=== PATIENT | male | born 1935 | race Caucasian/White ===

== ENCOUNTER 2020-09-11 20:29 | Emergency (ER) | payer OTHER ==
[~2020-09-11 20:29] MED LIST: ALLOPURINOL300 MG PO; ASPIR 8181 MG PO; ASPIRIN325 MG PO; BYSTOLIC10 MG PO; BYSTOLIC5 MG PO; IRON18 MG PO; LISINOPRIL40 MG PO; METFORMIN HCL500 MG PO; NORVASC5 MG PO; SULINDAC200 MG PO; TEKTURNA150 MG PO; VITAMIN D1000 UNIT PO; ZESTRIL40 MG PO; ZOCOR40 M1 PO
== END 2020-09-11 21:44 | disposition home or self-care (01) ==
LOC: FER 20:29
DX: H61.22 Impacted cerumen, left ear (principal); I10 Essential (primary) hypertension; Z79.899 Other long term (current) drug therapy
CPT/HCPCS: 99283

== ENCOUNTER 2021-07-26 20:09 | Emergency (ER) | payer OTHER ==
[2021-07-26 20:43] LABS: BASOPHIL 0.2 % (0-2); EOSINOPHIL 0 % (0-7); HCT 46.3 % (42.0-52.0); HGB 15.6 g/dl (13.2-18.0); LYMPHOCYTE 7.4 % (15-48); MCHC 33.7 g/dL (32.0-36.0); MCV 94.9 fL (78.0-100.0); MONOCYTE 5.3 % (0-12); MPV 9.7 fL (6.0-9.5); NEUTROPHIL 86.8 % (41-80); NRBC 0; PLT 240 K/uL (150-400); RBC 4.88 M/uL (4.70-6.00); RDW 13.8 % (11.5-14.0); WBC 11.5 K/uL (4.0-10.5)
[2021-07-26 20:54] LABS: ALBUMIN 3.7 g/dL (3.4-5.0); BUN/CREAT RATIO (CALC) 25.3 RATIO; CREATININE 1.78 mg/dL (0.67-1.17); GLOBULIN (CALCULATION) 3.4 g/dL; POTASSIUM 4.8 mmol/L (3.5-5.1); TOTAL PROTEIN 7.1 g/dL (6.4-8.2)
[2021-07-26 21:51] LABS: BILIRUBIN 1+ mg/dL (NEGATIVE); BLOOD NEGATIVE Ery/uL (NEGATIVE); CLARITY CLEAR (CLEAR); COLOR YELLOW (YELLOW); GLUCOSE (U) NORMAL (NORMAL); LEUKOCYTES NEGATIVE Leu/uL (NEGATIVE); NITRITE NEGATIVE (NEGATIVE); PROTEIN NEGATIVE (NEGATIVE); SPECIFIC GRAVITY >=1.030 (1.001-1.030); UROBILINOGEN 0.2 mg/dL (0.2-1.0); pH 5.5 (5.0-9.0)
== END 2021-07-26 23:45 | disposition home or self-care (01) ==
LOC: FER 20:09
PROVIDERS: Internal Medicine
DX: R55 Syncope and collapse (principal); I95.9 Hypotension, unspecified; I10 Essential (primary) hypertension; Z88.1 Allergy status to other antibiotic agents; Z88.6 Allergy status to analgesic agent
CPT/HCPCS: 36415; 70450; 71250; 80053; 81003; 84484; 85025; 93005; J7030

== ENCOUNTER 2021-08-20 11:16 | Inpatient (IN) | payer OTHER ==
[~2021-08-20] VITALS: Ht 177.8 cm; Wt 66.0 kg
[2021-08-20 13:17] LABS: BILIRUBIN NEGATIVE (NEGATIVE); BLOOD 3+ Ery/uL (NEGATIVE); COLOR YELLOW (YELLOW); GLUCOSE (U) NORMAL (NORMAL); LEUKOCYTES 3+ Leu/uL (NEGATIVE); NITRITE NEGATIVE (NEGATIVE); PROTEIN TRACE (LOW) mg/dL (NEGATIVE); UROBILINOGEN 0.2 mg/dL (0.2-1.0); pH 6.5 (5.0-9.0)
[2021-08-20 13:17] LABS: BASOPHIL 0.4 % (0-2); EOSINOPHIL 0.7 % (0-7); HCT 44.2 % (42.0-52.0); HGB 15.1 g/dl (13.2-18.0); LYMPHOCYTE 9.1 % (15-48); MCH 31.7 pg (25.0-31.0); MCHC 34.2 g/dL (32.0-36.0); MCV 92.7 fL (78.0-100.0); MONOCYTE 6.4 % (0-12); MPV 10.9 fL (6.0-9.5); NRBC 0; PLT 169 K/uL (150-400); RBC 4.77 M/uL (4.70-6.00); RDW 13.9 % (11.5-14.0); WBC 10.4 K/uL (4.0-10.5)
[2021-08-20 13:20] LABS: CLARITY HAZY (CLEAR)
[2021-08-20 13:23] LABS: SPERM PRESENT
[2021-08-20 13:24] LABS: BACTERIA 1+; MUCOUS TRACE
[2021-08-20 13:30] LABS: BILIRUBIN - TOTAL 0.9 mg/dL (0.2-1.0); BUN/CREAT RATIO (CALC) 24.1 RATIO; CREATININE 0.83 mg/dL (0.67-1.17); GLOBULIN (CALCULATION) 3.2 g/dL; POTASSIUM 4.3 mmol/L (3.5-5.1); TOTAL PROTEIN 6.2 g/dL (6.4-8.2)
[2021-08-20] MEDS ORDERED: CYMBALTA 30MG C30 MG PO (18:17)
[2021-08-20] MEDS ORDERED: NORVASC5 MG PO (18:18)
[2021-08-20] MEDS ORDERED: LIPITOR 10MG TA10 MG PO (18:18)
[2021-08-20] MEDS ORDERED: PRINIVIL20 MG PO (18:18)
[2021-08-22 07:29] LABS: BASOPHIL 0.2 % (0-2); EOSINOPHIL 0.2 % (0-7); HCT 42.3 % (42.0-52.0); LYMPHOCYTE 7.8 % (15-48); MCH 31.2 pg (25.0-31.0); MCHC 33.1 g/dL (32.0-36.0); MCV 94.2 fL (78.0-100.0); MONOCYTE 5.9 % (0-12); MPV 10.8 fL (6.0-9.5); NEUTROPHIL 85.5 % (41-80); NRBC 0; PLT 157 K/uL (150-400); RBC 4.49 M/uL (4.70-6.00); RDW 14.6 % (11.5-14.0); WBC 11.8 K/uL (4.0-10.5)
--- NOTE | 2021-08-22 14:12 | NUR ---
08/22/21 Mr. Franks was oreinted to name, and address when an assessment was attempted on 08/21. He was note oriented to place, time, or situation. Mr. Franks's condition has deteriorated and he has been moved to TCU. ETOH withdrawal is suspected. - In attempts to locate next of kin, Jeni Garcia, cotton inspector / respiratory therapy assistant, , was contacted. She reports perform grocery shopping, keep house, meals preparation at times and to have stayed over night last weekend due to decline in condition. Ms. Garcia reports several recent falls. Mr. Franks has a rw and s. seat. A recent referral was made to [facility] by Dr. Duque, PCP. Ms. Garcia provided the information re: a first counsin, Jory Real, . - Ms. Real reports that Mr. Franks has 2 daughters in [place] whom Mr. Franks has not had contact in msy years. He has a sister, Freda Barksdale in [place], [place]. The telephone # was disconnected the last time Mr. Franks attempted to reach his sister. - Ms. Real was agreeable to be contacted if consent is needed in case of an emergency. - [facility] was notified of admission. - Report given to Dr. Stovall.
[2021-08-23 06:51] LABS: BASOPHIL 0.2 % (0-2); EOSINOPHIL 0.7 % (0-7); HCT 40.7 % (42.0-52.0); HGB 13.5 g/dl (13.2-18.0); LYMPHOCYTE 11.1 % (15-48); MCH 31.3 pg (25.0-31.0); MCHC 33.2 g/dL (32.0-36.0); MCV 94.2 fL (78.0-100.0); MONOCYTE 6.7 % (0-12); MPV 10.9 fL (6.0-9.5); NEUTROPHIL 80.9 % (41-80); NRBC 0; PLT 155 K/uL (150-400); RBC 4.32 M/uL (4.70-6.00); RDW 14.6 % (11.5-14.0); WBC 9.6 K/uL (4.0-10.5)
[2021-08-23 07:07] LABS: ALBUMIN 2.4 g/dL (3.4-5.0); BILIRUBIN - DIRECT 0.2 mg/dL (0.00-0.20); BUN/CREAT RATIO (CALC) 18.9 RATIO; CREATININE 0.9 mg/dL (0.67-1.17); GLOBULIN (CALCULATION) 3.3 g/dL; POTASSIUM 3.7 mmol/L (3.5-5.1); TOTAL PROTEIN 5.7 g/dL (6.4-8.2)
[2021-08-24 06:19] LABS: BASOPHIL 0.3 % (0-2); EOSINOPHIL 1.7 % (0-7); HCT 40.2 % (42.0-52.0); HGB 13.5 g/dl (13.2-18.0); LYMPHOCYTE 13.1 % (15-48); MCH 31.9 pg (25.0-31.0); MCHC 33.6 g/dL (32.0-36.0); MONOCYTE 9.8 % (0-12); MPV 10.7 fL (6.0-9.5); NEUTROPHIL 74.5 % (41-80); NRBC 0; PLT 158 K/uL (150-400); RBC 4.23 M/uL (4.70-6.00); RDW 14.7 % (11.5-14.0); WBC 6.4 K/uL (4.0-10.5)
[2021-08-24 06:39] LABS: BUN/CREAT RATIO (CALC) 24.3 RATIO; CREATININE 0.74 mg/dL (0.67-1.17); POTASSIUM 4.1 mmol/L (3.5-5.1)
[2021-08-25 06:31] LABS: BASOPHIL 0.5 % (0-2); EOSINOPHIL 2.1 % (0-7); HCT 40.2 % (42.0-52.0); HGB 13.6 g/dl (13.2-18.0); LYMPHOCYTE 13.3 % (15-48); MCH 31.9 pg (25.0-31.0); MCHC 33.8 g/dL (32.0-36.0); MCV 94.4 fL (78.0-100.0); MONOCYTE 10.3 % (0-12); MPV 10.6 fL (6.0-9.5); NEUTROPHIL 72.8 % (41-80); NRBC 0; PLT 161 K/uL (150-400); RBC 4.26 M/uL (4.70-6.00); RDW 14.5 % (11.5-14.0); WBC 6.3 K/uL (4.0-10.5)
--- NOTE | 2021-08-25 06:36 | NUR ---
ORTHOSTATIC VITALS ORDERED ON PATIENT. UNABLE TO OBTAIN DUE TO PATIENT INABILITY TO STAND.
[2021-08-25 07:06] LABS: BUN/CREAT RATIO (CALC) 19.7 RATIO; CREATININE 0.66 mg/dL (0.67-1.17); POTASSIUM 4.3 mmol/L (3.5-5.1)
[2021-08-25] MEDS ORDERED: LUMIGAN5 ML EYEBOTH (09:37)
[2021-08-25] MEDS ORDERED: TIMOPTIC5 ML EYERT (09:39)
[2021-08-26 06:25] LABS: BASOPHIL 0.6 % (0-2); EOSINOPHIL 1.4 % (0-7); HCT 42.2 % (42.0-52.0); HGB 13.6 g/dl (13.2-18.0); LYMPHOCYTE 10.4 % (15-48); MCH 31.3 pg (25.0-31.0); MCHC 32.2 g/dL (32.0-36.0); MONOCYTE 9.7 % (0-12); MPV 10.4 fL (6.0-9.5); NEUTROPHIL 77.1 % (41-80); NRBC 0; PLT 190 K/uL (150-400); RBC 4.35 M/uL (4.70-6.00); RDW 14.6 % (11.5-14.0); WBC 9.1 K/uL (4.0-10.5)
[2021-08-26 06:56] LABS: BUN/CREAT RATIO (CALC) 20.8 RATIO; CREATININE 0.72 mg/dL (0.67-1.17)
[2021-08-27 06:26] LABS: BASOPHIL 0.6 % (0-2); EOSINOPHIL 1.6 % (0-7); HCT 39.9 % (42.0-52.0); HGB 13.3 g/dl (13.2-18.0); LYMPHOCYTE 11.1 % (15-48); MCH 31.7 pg (25.0-31.0); MCHC 33.3 g/dL (32.0-36.0); MONOCYTE 8.8 % (0-12); MPV 10.6 fL (6.0-9.5); NEUTROPHIL 76.9 % (41-80); NRBC 0; PLT 214 K/uL (150-400); RDW 14.5 % (11.5-14.0); WBC 8.9 K/uL (4.0-10.5)
[2021-08-27 06:50] LABS: BUN/CREAT RATIO (CALC) 21.9 RATIO; CREATININE 0.64 mg/dL (0.67-1.17); POTASSIUM 4.2 mmol/L (3.5-5.1)
[2021-08-28 06:56] LABS: BUN/CREAT RATIO (CALC) 23.8 RATIO; CREATININE 0.63 mg/dL (0.67-1.17); POTASSIUM 4.9 mmol/L (3.5-5.1)
[2021-08-28] MEDS ORDERED: FLORANEX TABLE1 EACH PO (10:12)
[2021-08-28] MEDS ORDERED: CLOTRIMAZOLE45 G1 TOP (10:12)
[2021-08-28] MEDS ORDERED: VITAMIN B-1100 M1 PO (10:12)
[2021-08-28] MEDS ORDERED: MAG-OXIDE 400M400 MG PO (10:12)
[2021-08-28] MEDS ORDERED: FOLIC ACID1 MG PO (10:12)
--- NOTE | 2021-08-28 12:33 | NUR ---
08/28 Mr. Franks has agreed to SNF placement. Referrals have been [facility]ed to [facility]. [facility] does not have an available bed this week.
--- NOTE | 2021-08-29 09:48 | NUR ---
08/29/21 [facility] has accepted patient pending insurance authorization. - A message has been left for Jenidione Garcia to onquire if she can provide transportation. - Recommendations were made for Mr. Franks to see his harness builder re: devising a DPOA.
--- NOTE | 2021-08-29 14:31 | NUR ---
08/29/21 [facility] has received insurance auth for admission today. Please call report to: [phone] and fax DS and signed H&P to: . Pt meets criteria for EMS per nursing. - Jeni Garcia, director of engineering, was informed of discharge plan per Mr. Franks's request.
== END 2021-08-29 22:07 | DRG 689 ==
LOC: FER 11:16 → FMS 14:22 → FTCU 14:22 → FMS 14:22 → FTCU 08-22 10:41 → FMS 08-24 22:57
PROVIDERS: Emergency Medicine; Family Medicine; ADMIT Allergy & Immunology Allergy
PROC: HZ2ZZZZ Detoxification Services for Substance Abuse Treatment (ICD-10-PCS; principal; 2021-08-22)
DX: N30.01 Acute cystitis with hematuria (principal); G93.41 Metabolic encephalopathy; R44.0 Auditory hallucinations; Z16.12 Extended spectrum beta lactamase (ESBL) resistance; T84.84XA Pain due to internal orthopedic prosthetic devices, implants and grafts, initial encounter; F10.239 Alcohol dependence with withdrawal, unspecified; F10.221 Alcohol dependence with intoxication delirium; Z20.822 Contact with and (suspected) exposure to COVID-19; N48.1 Balanitis; M25.571 Pain in right ankle and joints of right foot; M25.572 Pain in left ankle and joints of left foot; W19.XXXA Unspecified fall, initial encounter; I95.1 Orthostatic hypotension; F41.9 Anxiety disorder, unspecified; R44.1 Visual hallucinations; B96.4 Proteus (mirabilis) (morganii) as the cause of diseases classified elsewhere; B95.2 Enterococcus as the cause of diseases classified elsewhere; E11.9 Type 2 diabetes mellitus without complications; I10 Essential (primary) hypertension; Z96.651 Presence of right artificial knee joint; I25.10 Atherosclerotic heart disease of native coronary artery without angina pectoris; E78.5 Hyperlipidemia, unspecified; Z87.81 Personal history of (healed) traumatic fracture; Z88.1 Allergy status to other antibiotic agents; Z98.890 Other specified postprocedural states; Z82.49 Family history of ischemic heart disease and other diseases of the circulatory system; Z79.899 Other long term (current) drug therapy
CPT/HCPCS: 36415; 70450; 71045; 72131; 73502; 73600; 73610; 80048; 80053; 80076; 80202; 81001; 83036; 85025; 87040; 87076; 87088; 87186; 93005; 97162; 97166; 97530; 97530-GP; 97535; J0696; J1650; J2185; J2543; J7120; U0002

== ENCOUNTER 2021-09-27 15:14 | Emergency (ER) | payer OTHER ==
[~2021-09-27 15:14] MED LIST changes: +CLOTRIMAZOLE45 G1 TOP; +CYMBALTA 30MG C30 MG PO; +FLORANEX TABLE1 EACH PO; +FOLIC ACID1 MG PO; +LIPITOR 10MG TA10 MG PO; +LUMIGAN5 ML EYEBOTH; +MAG-OXIDE 400M400 MG PO; +PRINIVIL20 MG PO; +TIMOPTIC5 ML EYERT; +VITAMIN B-1100 M1 PO
== END 2021-09-27 19:00 | disposition home or self-care (01) ==
LOC: FER 15:14
DX: I95.89 Other hypotension (principal); Z88.1 Allergy status to other antibiotic agents; Z88.6 Allergy status to analgesic agent
CPT/HCPCS: 99284

== ENCOUNTER 2021-10-30 13:14 | Emergency (ER) | payer OTHER ==
[2021-10-30 13:55] LABS: BASOPHIL 0.4 % (0-2); EOSINOPHIL 1.7 % (0-7); HCT 39.8 % (42.0-52.0); HGB 13.1 g/dl (13.2-18.0); LYMPHOCYTE 12.3 % (15-48); MCH 31.3 pg (25.0-31.0); MCHC 32.9 g/dL (32.0-36.0); MONOCYTE 7.2 % (0-12); MPV 10.1 fL (6.0-9.5); NEUTROPHIL 78.2 % (41-80); NRBC 0; PLT 232 K/uL (150-400); RBC 4.19 M/uL (4.70-6.00); RDW 14.5 % (11.5-14.0); WBC 8.1 K/uL (4.0-10.5)
[2021-10-30 14:24] LABS: LACTIC ACID 1.2 mmol/L (0.4-1.9)
[2021-10-30 14:30] LABS: INR 0.97 (0.9-1.2); PROTHROMBIN TIME 12.6 SECONDS (11.9-13.9); PTT 32.6 SECONDS (24.9-34.6)
[2021-10-30 14:54] LABS: ALBUMIN 2.7 g/dL (3.4-5.0); ALKALINE PHOSHATASE 96 U/L (46-116); ALT 28 U/L (16-63); AST 42 U/L (15-37); BILIRUBIN - TOTAL 0.8 mg/dL (0.2-1.0); BUN 19 mg/dL (7-18); BUN/CREAT RATIO (CALC) 31.1 RATIO; CHLORIDE 104 mmol/L (98-107); CO2 (BICARBONATE) 27 mmol/L (21-32); CREATININE 0.61 mg/dL (0.67-1.17); GLOBULIN (CALCULATION) 3.1 g/dL; GLUCOSE 79 mg/dL (74-106); LIPASE 90 U/L (73-393); MAGNESIUM 1.8 mg/dL (1.8-2.4); POTASSIUM 3.8 mmol/L (3.5-5.1); TOTAL PROTEIN 5.8 g/dL (6.4-8.2)
[2021-10-30 15:04] LABS: IRON % SATURATION 25.1 %SAT (20-50)
[2021-10-30 15:09] LABS: CORONAVIRUS 2019 SARS-COV-2 NEGATIVE (NEGATIVE); INFLUENZA A NAA NEGATIVE (NEGATIVE)
[2021-10-30 17:10] LABS: CLARITY HAZY (CLEAR); COLOR YELLOW (YELLOW); SPECIFIC GRAVITY > 1.030 (1.001-1.030)
[2021-10-30 17:11] LABS: BILIRUBIN NEGATIVE (NEGATIVE); BLOOD NEGATIVE Ery/uL (NEGATIVE); GLUCOSE (U) NORMAL (NORMAL); LEUKOCYTES NEGATIVE Leu/uL (NEGATIVE); NITRITE NEGATIVE (NEGATIVE); PROTEIN NEGATIVE (NEGATIVE); UROBILINOGEN 0.2 mg/dL (0.2-1.0)
== END 2021-10-30 18:50 | disposition home or self-care (01) ==
LOC: FER 13:14
PROVIDERS: Emergency Medicine
DX: I95.89 Other hypotension (principal); F03.90 Unspecified dementia, unspecified severity, without behavioral disturbance, psychotic disturbance, mood disturbance, and anxiety; E11.9 Type 2 diabetes mellitus without complications; Z20.822 Contact with and (suspected) exposure to COVID-19; Z87.891 Personal history of nicotine dependence
CPT/HCPCS: 36415; 71045; 80053; 81003; 82140; 83540; 83550; 83605; 83690; 83735; 83880; 84145; 84439; 84443; 84484; 85025; 85610; 85730; 86140; 87040; 93005; G0480; U0002

== ENCOUNTER 2021-10-31 10:36 | Inpatient (IN) | payer OTHER ==
[~2021-10-31] VITALS: Ht 175.3 cm; Wt 68.1 kg
[2021-10-31 11:40] LABS: PTT 31.7 SECONDS (24.9-34.6)
[2021-10-31 11:41] LABS: INR 0.97 (0.9-1.2); PROTHROMBIN TIME 12.6 SECONDS (11.9-13.9)
[2021-10-31 11:47] LABS: LACTIC ACID 0.7 mmol/L (0.4-1.9)
[2021-10-31 11:56] LABS: ALBUMIN 2.7 g/dL (3.4-5.0); BILIRUBIN - TOTAL 0.7 mg/dL (0.2-1.0); BUN/CREAT RATIO (CALC) 31.1 RATIO; CREATININE 0.61 mg/dL (0.67-1.17); FT4 (FREE T4) 1.2 ng/dL (0.76-1.46); GLOBULIN (CALCULATION) 3.2 g/dL; MAGNESIUM 1.7 mg/dL (1.8-2.4); POTASSIUM 4.3 mmol/L (3.5-5.1); TOTAL PROTEIN 5.9 g/dL (6.4-8.2)
[2021-10-31 12:12] LABS: BASOPHIL 0.3 % (0-2); EOSINOPHIL 0.8 % (0-7); HCT 38.7 % (42.0-52.0); HGB 12.9 g/dl (13.2-18.0); LYMPHOCYTE 9.1 % (15-48); MCH 31.7 pg (25.0-31.0); MCHC 33.3 g/dL (32.0-36.0); MCV 95.1 fL (78.0-100.0); MONOCYTE 4.3 % (0-12); MPV 9.8 fL (6.0-9.5); NEUTROPHIL 84.1 % (41-80); NRBC 0; PLT 171 K/uL (150-400); RBC 4.07 M/uL (4.70-6.00); RDW 14.2 % (11.5-14.0); WBC 9.9 K/uL (4.0-10.5)
[2021-10-31 12:24] LABS: BILIRUBIN NEGATIVE (NEGATIVE); BLOOD 3+ Ery/uL (NEGATIVE); CLARITY CLEAR (CLEAR); COLOR YELLOW (YELLOW); GLUCOSE (U) NORMAL (NORMAL); LEUKOCYTES NEGATIVE Leu/uL (NEGATIVE); NITRITE NEGATIVE (NEGATIVE); PROTEIN NEGATIVE (NEGATIVE); SPECIFIC GRAVITY >=1.030 (1.001-1.030)
[2021-10-31 13:02] LABS: CORONAVIRUS 2019 SARS-COV-2 NEGATIVE (NEGATIVE); INFLUENZA A NAA NEGATIVE (NEGATIVE)
[2021-10-31 13:17] LABS: BACTERIA 1+; SQUAMOUS EPITHELIAL CELLS RARE; URINARY RBC 20-50; URINARY WBC RARE
[2021-10-31 13:18] LABS: CALCIUM OXALATE CRYSTALS MODERATE
[2021-11-01 05:42] LABS: HCT 36.6 % (42.0-52.0); HGB 12.3 g/dl (13.2-18.0); MCH 31.6 pg (25.0-31.0); MCHC 33.6 g/dL (32.0-36.0); MCV 94.1 fL (78.0-100.0); MPV 9.9 fL (6.0-9.5); RBC 3.89 M/uL (4.70-6.00); RDW 14.5 % (11.5-14.0)
[2021-11-01 06:02] LABS: CREATININE 0.62 mg/dL (0.67-1.17); POTASSIUM 3.6 mmol/L (3.5-5.1)
--- NOTE | 2021-11-01 16:16 | NUR ---
11/01/21 Mr. Franks lives alone. He has a dip unit operator, Jeni Garcia, . Mr. Franks has a rw and s. seat. He has been having falls at home. [facility] has discharge him from their services stating patient is not safe in the home. APS, Myla Skinner is has an open case, . Ms. Skinner plans to request guardianship. - Mr. Franks has agreed to SNF placement. - [facility] choice is [facility] 2nd [facility]. [facility] does not accept his insurance. All [facility] facilities have denied because Mr. Franks would not apply for Medicaid when he was last in their facility in [facility] and he owes the facility money. [facility] does not have a bed available. [facility], and [facility] and [facility] are reviewing.
--- NOTE | 2021-11-02 12:45 | NUR ---
11/02/21 [facility] denied and will not consider accepting until a guardian is secured. [facility] denied becuase they are not in network. [facility] and [facility] is reviewing the referral.
[2021-11-04 12:04] LABS: HCT 37.9 % (42.0-52.0); HGB 12.6 g/dl (13.2-18.0); MCH 31.8 pg (25.0-31.0); MCHC 33.2 g/dL (32.0-36.0); MCV 95.7 fL (78.0-100.0); MPV 10.2 fL (6.0-9.5); RBC 3.96 M/uL (4.70-6.00); RDW 14.9 % (11.5-14.0); WBC 10.5 K/uL (4.0-10.5)
[2021-11-04 12:25] LABS: ALBUMIN 2.3 g/dL (3.4-5.0); BILIRUBIN - TOTAL 0.7 mg/dL (0.2-1.0); BUN/CREAT RATIO (CALC) 20.8 RATIO; CREATININE 0.53 mg/dL (0.67-1.17); GLOBULIN (CALCULATION) 3.3 g/dL; POTASSIUM 3.9 mmol/L (3.5-5.1); TOTAL PROTEIN 5.6 g/dL (6.4-8.2)
[2021-11-05 06:19] LABS: HCT 35.7 % (42.0-52.0); HGB 11.9 g/dl (13.2-18.0); MCH 31.8 pg (25.0-31.0); MCHC 33.3 g/dL (32.0-36.0); MCV 95.5 fL (78.0-100.0); MPV 10.5 fL (6.0-9.5); RBC 3.74 M/uL (4.70-6.00); RDW 14.8 % (11.5-14.0); WBC 7.3 K/uL (4.0-10.5)
[2021-11-05 06:38] LABS: ALBUMIN 2.2 g/dL (3.4-5.0); BILIRUBIN - TOTAL 0.6 mg/dL (0.2-1.0); BUN/CREAT RATIO (CALC) 16.7 RATIO; CREATININE 0.66 mg/dL (0.67-1.17); GLOBULIN (CALCULATION) 3.4 g/dL; POTASSIUM 3.8 mmol/L (3.5-5.1); TOTAL PROTEIN 5.6 g/dL (6.4-8.2)
--- NOTE | 2021-11-05 10:11 | NUR ---
11/05/21 Mr. Franks started exhibiting withdrawal symptoms, hallucinations, on 11/04/21. He is not ready for discharge.
--- NOTE | 2021-11-05 22:37 | NUR ---
HS BLOOD GLUCOSE - 87
[2021-11-06 05:31] LABS: BASOPHIL 0.3 % (0-2); EOSINOPHIL 1.3 % (0-7); HCT 33.6 % (42.0-52.0); LYMPHOCYTE 7.7 % (15-48); MCH 31.7 pg (25.0-31.0); MCHC 32.7 g/dL (32.0-36.0); MCV 96.8 fL (78.0-100.0); NEUTROPHIL 81.3 % (41-80); NRBC 0; PLT 167 K/uL (150-400); RBC 3.47 M/uL (4.70-6.00)
[2021-11-06 05:56] LABS: ALBUMIN 2.1 g/dL (3.4-5.0); BILIRUBIN - TOTAL 0.6 mg/dL (0.2-1.0); BUN/CREAT RATIO (CALC) 18.2 RATIO; CREATININE 0.66 mg/dL (0.67-1.17); GLOBULIN (CALCULATION) 2.8 g/dL; MAGNESIUM 1.7 mg/dL (1.8-2.4); PHOSPHORUS 2.9 mg/dL (2.6-4.7); POTASSIUM 3.5 mmol/L (3.5-5.1); TOTAL PROTEIN 4.9 g/dL (6.4-8.2)
[2021-11-06 11:07] LABS: IRON % SATURATION 12.7 %SAT (20-50)
--- NOTE | 2021-11-06 15:14 | NUR ---
11/06/21 Mr. Franks continues to withdrawal from etoh. New therapy assessments will likely be required in order to persue SNF placement if patient continues to be in agreement with the plan.
[2021-11-07 06:04] LABS: BASOPHIL 0.3 % (0-2); EOSINOPHIL 0.3 % (0-7); HGB 10.3 g/dl (13.2-18.0); LYMPHOCYTE 3.7 % (15-48); MCH 31.5 pg (25.0-31.0); MCHC 32.2 g/dL (32.0-36.0); MCV 97.9 fL (78.0-100.0); MONOCYTE 3.9 % (0-12); MPV 10.4 fL (6.0-9.5); NRBC 0; PLT 151 K/uL (150-400); RBC 3.27 M/uL (4.70-6.00); RDW 14.6 % (11.5-14.0)
[2021-11-07 06:07] LABS: NEUTROPHIL 91.1 % (41-80)
--- NOTE | 2021-11-07 06:07 | NUR ---
PATIENTS LUNGS SOUNDED WET WITH CRACKLES AFTER THE BOLUS GIVEN FOR HIS BLOOD PRESSURE. RT WAS CALLED AND ORDERED WAS PLACED FOR NT SUCTION. WHITISH CHUNKY SUBSTANCE WAS IN THE SUCTION TUBING. APPEARS THE PT. MAY HAVE ASPIRATED ACCORDING TO RT. FITNESS CONSULTANT NOTIFIED. LASIX 20MG IV ALSO ORDERED AT THIS TIME. ER,RN
[2021-11-07 06:45] LABS: ALBUMIN 1.7 g/dL (3.4-5.0); BILIRUBIN - TOTAL 0.6 mg/dL (0.2-1.0); BUN/CREAT RATIO (CALC) 26.1 RATIO; C-REACTIVE PROTEIN 11.2 mg/dL (<=0.90); CREATININE 0.46 mg/dL (0.67-1.17); GLOBULIN (CALCULATION) 2.1 g/dL; MAGNESIUM 2.1 mg/dL (1.8-2.4); TOTAL PROTEIN 3.8 g/dL (6.4-8.2)
--- NOTE | 2021-11-07 12:23 | NUR ---
12/08/21 Mr. Franks's condition is worsening.
--- NOTE | 2021-11-07 16:33 | NUR ---
MONITORED PATIENT MENTAL STATUS THROUGHOUT THE DAY AND PATIENT WAS ONLY ALERT TO NAME AND REQUIRED STERNAL RUB TO WAKE UP. WOULD ONLY OPEN EYES FOR A COUPLE OF SECONDS AND WOULD FALL BACK ASLEEP. WOULD NOT FOLLOW COMMANDS. 1100 NOTIFIED REGARDING PRESSURES AND MAP AT 62. 1LNS BOLUS WAS GIVEN. PRESSURES IMPROVED WITH MAP OF 65. ZOSYN WAS STARTED WELL. APPROX 1315 NOTIFIED REGARDING PATIENT DECLINE. BREATHING WAS MORE APENIC, SHALLOW, O2 SAT WAS DECREASING WITH VENTURI 50% SAT AT 90%. BLOOD PRESSURE DROPPED TO 59. MANUAL WAS TAKEN TO CONFIRM. SKIN COLOR WAS PALE AND PATIENT WAS LESS RESPONSIVE EVEN TO STERNAL RUB. CONDITION WAS WORSENING . CAME TO ASSESS AND MORE IV WERE PLACED. PATIENT WAS MOVED TO ICU2. BP MAP WAS 55 AND LEVOPHED WAS STARTED WELL. ORDERED MRI HEAD AND CHEST TO CHECK FOR BLOOD CLOT. CLOTS WERE RULED OUT. ROMAZICON WAS GIVEN AND PATIENT RESPONDED WITHIN 10 SECONDS. BECAME MORE ORIENTED, ALERT AND WOULD FOLLOW COMMANDS. ORDERS WERE PLACED TO BE GIVE Q20HR PRN. 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
[2021-11-08 05:36] LABS: BASOPHIL 0.3 % (0-2); EOSINOPHIL 0.1 % (0-7); HCT 43.1 % (42.0-52.0); HGB 13.2 g/dl (13.2-18.0); LYMPHOCYTE 1.1 % (15-48); MCH 31.1 pg (25.0-31.0); MCHC 30.6 g/dL (32.0-36.0); MCV 101.7 fL (78.0-100.0); MONOCYTE 1.5 % (0-12); MPV 10.6 fL (6.0-9.5); NRBC 0; PLT 181 K/uL (150-400); RBC 4.24 M/uL (4.70-6.00); RDW 14.6 % (11.5-14.0); WBC 27.8 K/uL (4.0-10.5)
[2021-11-08 05:51] LABS: NEUTROPHIL 96.2 % (41-80)
[2021-11-08 06:28] LABS: ALBUMIN 2.1 g/dL (3.4-5.0); ALKALINE PHOSHATASE 118 U/L (46-116); ALT 30 U/L (16-63); AST 29 U/L (15-37); BILIRUBIN - TOTAL 0.5 mg/dL (0.2-1.0); BUN 14 mg/dL (7-18); CHLORIDE 107 mmol/L (98-107); CO2 (BICARBONATE) 28 mmol/L (21-32); GLOBULIN (CALCULATION) 2.9 g/dL; GLUCOSE 138 mg/dL (74-106); PHOSPHORUS 4.9 mg/dL (2.6-4.7); POTASSIUM 5.3 mmol/L (3.5-5.1)
[2021-11-08 06:30] LABS: C-REACTIVE PROTEIN >18.00 mg/dL (<=0.90); MAGNESIUM 2.7 mg/dL (1.8-2.4)
--- NOTE | 2021-11-08 10:30 | NUR ---
PT TIME OF WAS 919,FAMILY WAS NOTIFED BT DR TINOCO. [facility] WAS SELECTED BY SADI BUTLER NEXT OF [facility], PATIENT WAS CLEAN AND PREPARED FOR TRANSPORT. JENNY R/O BODY FOR DONATION BECAUSE OF AGE. BELONGINGS WILL BE SENT WITH HIM TO [facility] FOR FAMILY TO VICTIM ADVOCATE. SADI BUTLER NOTIFIED ABOUT BELONGINGS
--- NOTE | 2021-11-08 11:01 | NUR ---
notified Jory that his glasses, hearing aide and wallet was in a cloth bag and was sent to [facility] home with Thuan.
--- NOTE | 2021-11-08 13:11 | NUR ---
11/08/21 Mr. Franks this morning. Shyanne Skinner with APS was notified.
== END 2021-11-08 10:56 | disposition expired | DRG 871 ==
LOC: FER 10:36 → FTCU 15:30 → FMS 11-01 08:31 → FTCU 11-04 09:33 → FICU 11-07 14:56
PROVIDERS: Emergency Medicine; Family Medicine; ADMIT Internal Medicine
PROC: 3E03329 Introduction of Other Anti-infective into Peripheral Vein, Percutaneous Approach (ICD-10-PCS; principal; 2021-10-31)
PROC: 0T9B70Z Drainage of Bladder with Drainage Device, Via Natural or Artificial Opening (ICD-10-PCS; 2021-10-31)
PROC: HZ2ZZZZ Detoxification Services for Substance Abuse Treatment (ICD-10-PCS; 2021-10-31)
PROC: 3E033XZ Introduction of Vasopressor into Peripheral Vein, Percutaneous Approach (ICD-10-PCS; 2021-11-07)
DX: A41.9 Sepsis, unspecified organism (principal); G93.41 Metabolic encephalopathy; J69.0 Pneumonitis due to inhalation of food and vomit; J96.01 Acute respiratory failure with hypoxia; R65.21 Severe sepsis with septic shock; J18.9 Pneumonia, unspecified organism; N30.01 Acute cystitis with hematuria; E44.0 Moderate protein-calorie malnutrition; F10.131 Alcohol abuse with withdrawal delirium; Z20.822 Contact with and (suspected) exposure to COVID-19; L89.610 Pressure ulcer of right heel, unstageable; W19.XXXA Unspecified fall, initial encounter; S41.111A Laceration without foreign body of right upper arm, initial encounter; S40.022A Contusion of left upper arm, initial encounter; F03.90 Unspecified dementia, unspecified severity, without behavioral disturbance, psychotic disturbance, mood disturbance, and anxiety; M47.812 Spondylosis without myelopathy or radiculopathy, cervical region; M47.816 Spondylosis without myelopathy or radiculopathy, lumbar region; I10 Essential (primary) hypertension; I25.10 Atherosclerotic heart disease of native coronary artery without angina pectoris; I73.9 Peripheral vascular disease, unspecified; E78.5 Hyperlipidemia, unspecified; R73.9 Hyperglycemia, unspecified; E83.42 Hypomagnesemia; G47.30 Sleep apnea, unspecified; I71.4 Abdominal aortic aneurysm, without rupture; N48.1 Balanitis; B37.2 Candidiasis of skin and nail; B35.6 Tinea cruris; E16.2 Hypoglycemia, unspecified; R74.01 Elevation of levels of liver transaminase levels; R29.6 Repeated falls; D50.9 Iron deficiency anemia, unspecified; Z96.651 Presence of right artificial knee joint; Z96.641 Presence of right artificial hip joint; Z88.1 Allergy status to other antibiotic agents; Z88.8 Allergy status to other drugs, medicaments and biological substances; Z98.890 Other specified postprocedural states
CPT/HCPCS: 36415; 36600; 70450; 71045; 71250; 71260; 71275; 72125; 72128; 72131; 73522; 80048; 80053; 81001; 82550; 82607; 82803; 82962; 83540; 83550; 83605; 83735; 83880; 84100; 84145; 84439; 84443; 84484; 85025; 85610; 85730; 86140; 87076; 87088; 87186; 92523; 93005; 94760; 97162; 97166; 97530; 97530-GP; J0696; J1650; J1940; J2060; J2543; J2916; J2930; J3370; J3411; J3475; J3480; J7030; J7050; Q9967; U0002